=== PATIENT | female | born 1960 | race American Indian/Alaskan Native ===

== ENCOUNTER 2017-03-09 10:11 | Outpatient (CLI) | payer BC ==
--- NOTE | 2017-03-12 09:48 | Mammography Report ---
BILATERAL MAMMOGRAM: FINDINGS: The breasts are almost entirely fat (<25% glandular). No mass, distortion, suspicious calcification, or skin change is seen. No significant change when compared to prior exams dating back to 2015. CAD was utilized. IMPRESSION: Negative mammogram. There is no mammographic evidence of malignancy. RECOMMENDATION: Follow-up per ACS guidelines. BI-RADS CATEGORY: 1 = Negative ACR BI-RADS MAMMOGRAPHIC CODES: 0 = Needs additional imaging evaluation; 1 = Negative; 2 = Benign; 3 = Probably benign; 4 = Suspicious; 5 = Malignant; 6 = Known biopsy-proven malignancy COMMENT: 1. Dense breast tissue, i.e., adenosis, fibrocystic changes, etc., may obscure an underlying neoplasm. 2. Approximately 10% of cancers are not detected with mammography. 3. A negative mammography report should not delay biopsy if a clinically suspicious mass is present. COMMENT: Patient follow-up letters are generated in [employer].
== END 2017-03-09 10:12 | disposition home or self-care (01) ==
LOC: SPVWC 10:11
PROVIDERS: ATTEND Obstetrics & Gynecology
DX: Z12.31 Encounter for screening mammogram for malignant neoplasm of breast (principal)
CPT/HCPCS: 77067; G0202

== ENCOUNTER 2018-10-14 09:36 | Outpatient (CLI) | payer BC ==
--- NOTE | 2018-10-14 11:36 | Mammography Report ---
BILATERAL DIGITAL SCREENING MAMMOGRAM WITH CAD INDICATION: Routine screening mammography. TECHNIQUE: Digital bilateral 2D mammography was obtained in the craniocaudal and mediolateral obliq ue projections. This examination was interpreted with the benefit of Computer-Aided Detection analysi s. COMPARISON: 10/05/2015 and 03/09/2017 FINDINGS: Breast Density: The breasts are almost entirely fatty. No mass, architectural distortion or suspicious calcifications. Bilateral benign calcifications. IMPRESSION:No mammographic evidence of malignancy. BI-RADS Category 2: Benign. No mammographic evidence of malignancy. Recommend routine screening ma mmography in one year. A "normal" or negative report should not discourage follow up or biopsy of a clinically significant f inding. A written summary of these findings will be mailed to the patient. The patient will be entered into a mammography reporting system which will generate a reminder letter for the patient's next appointmen t at the appropriate interval. The [employer] recommends yearly mammograms starting at age 40 and continuing as l matthew as a woman is in good health. Breast MRI is recommended for women with an approximate 20-25% or greater lifetime risk of breast cancer, including women with a strong family history of breast or ova dahiana cancer or who have been treated for Hodgkin's disease. Signer Name: Jun Solano MD Signed: 10/14/2018 11:31 AM Workstation Name: [id number]
== END 2018-10-14 09:37 | disposition home or self-care (01) ==
LOC: SPVWC 09:36
PROVIDERS: ATTEND Obstetrics & Gynecology
DX: Z12.31 Encounter for screening mammogram for malignant neoplasm of breast (principal)
CPT/HCPCS: 77067

== ENCOUNTER 2019-06-17 05:45 | Day surgery (SDC) | payer BC ==
--- NOTE | 2019-06-09 17:38 | History and Physical Report ---
History of Present Illness Date of examination: 06/05/19 Chief complaint: Postmenopausal bleeding and endometrial mass History of present illness: ast History : 2 Term Births: 2 Living Children: 2 Prev : 2 # 1 Delivery date: 1985 Delivery type: Comments: c/sx2 # 2 Delivery type: RN EMERGENCY ROOM History Operations: Tubal Ligation Ventral hernoa repair colon polypectomy thru periumbilical incision Breast Reduction: C-sectionx2 hiatal hernia repair (03/2019) Abnormal PAP: negative Infection History HIV Risk Eval: no Hx of STD: HSV Active Medications (reviewed today): LINZESS 145 MCG ORAL CAPSULE (LINACLOTIDE) TRIBENZOR 40-10-12.5 MG ORAL TABLET (Umnuuxrmzk-Gloxxauaxz-YOWF) Current Allergies (reviewed today): No known allergies Past Medical History: Reviewed history from 04/12/2011 and no changes required: Hypertension [facility] Past Surgical History: Tubal Ligation Ventral hernoa repair colon polypectomy thru periumbilical incision Breast Reduction: C-sectionx2 hiatal hernia repair (03/2019) Family History Summary: Reviewed history Last on 03/17/2019 and no changes required:06/09/2019 Other Family Member - Has No Family History of Uterine Cancer - Entered On: 09/24/2015 Other Family Member - Has No Family History of Small Bowel Cancer - Entered On: 09/24/2015 Other Family Member - Has No Family History of Stomach Cancer - Entered On: 09/24/2015 Other Family Member - Has No Family History of Pancreatic Cancer - Entered On: 09/24/2015 Other Family Member - Has No Family History of Ovarvian Cancer - Entered On: 09/24/2015 Other Family Member - Has No Family History of Kidney/Urinary Tract Cancer - Entered On: 09/24/2015 Other Family Member - Has No Family History of DVT/PE on OCP - Entered On: 09/24/2015 Other Family Member - Has No Family History of Colon Cancer - Entered On: 09/24/2015 Other Family Member - Has No Family History of Brain Cancer - Entered On: 09/24/2015 Other Family Member - Has No Family History of Biliary Tract Cancer - Entered On: 09/24/2015 General Comments - FH: Family History Breast Cancer cousins (maternal great aunt's grandchildren) No Family History of Colon Cancer No Family History of Ovarvian Cancer Social History: Reviewed history from 09/27/2016 and no changes required: Patient is Smoking History: Patient has never smoked. Risk Factors: Alcohol use: yes Previous Tobacco Use: Signed On 04/07/2019 Smoked Tobacco Use: Never smoker Smokeless Tobacco Use: Never Passive smoke exposure: no Drug use: no HIV high-risk behavior: no Previous Alcohol Use: Signed On 04/07/2019 Alcohol use: yes Type: occ Drinks per day: social Exercise: no Seatbelt use: 100 % Colonoscopy History: Date of Last Colonoscopy: 09/30/2013 Mammogram History: Date of Last Mammogram: 10/14/2018 PAP Smear History: Date of Last PAP Smear: 03/17/2019 Physical Exam Appearance: well developed, well nourished, no acute distress Other Exams Lungs: no rales, rhonchi, or wheezes Heart: S1, S2, no murmur, rub, or gallop Genitourinary Exam Uterus: deferred for EUA Impression & Recommendations: Problem # 1: Postmenopausal Bleeding (ICD-627.1) ([id number]-Q14.0) Patient desires to proceed wtih hysteroscopy D&C and removal of endometrial ma ss. Consent reviewed and signed . Possible laparoscopy or laparotomy explained to patient. The risks and alternatives for this surgery were reviewed with the patient. She was informed of possible bleeding, infection, injury to bowel, bladder, ureters or other adjacent organs. The patient was instructed/informed the following: The normal length of hospital stay for this procedure. Nothing to eat or drink after midnight the evening prior to surgery. Clear liquids after dinner the night before surgery. Pre-op instruction sheets given. Patient to call for any signs or symptoms of infection. The usual discomforts associated with this procedure were detailed. Patient was given ample opportunity to have all her questions answered before signing informed consent. Problem # 2: Endometrial mass (ICD-236.0) (CVB72-Q91.0) Medications and Allergies Allergies Allergy/AdvReac Type Severity Reaction Status Date / Time No Known Allergies Allergy Unverified 06/05/19 12:05 Home Medications Medication Instructions Recorded Confirmed Last Taken Type Latanoprost 0.005% 1 drop OU HS 06/05/19 06/05/19 Unknown History Linaclotide [Linzess] 1 cap PO DAILY PRN 06/05/19 06/05/19 Unknown History Olmesartan/Amlodipin/Hcthiazid 1 each PO DAILY 06/05/19 06/05/19 Unknown History [Tribenzor 20-5-12.5 mg Tablet] Active Meds: Active Medications Cefazolin Sodium (Ancef/Sterile Water 2 Gm/20 Ml) 2 gm in 20 mls @ 80 mls/hr IV PREOP NR; Protocol Assessment and Plan - Patient Problems (1) Postmenopausal bleeding Status: Acute (2) Endometrial mass Status: Acute
[~2019-06-17 05:45] MED LIST: LACTATED RINGERS 1,000 ML IV SCH; ceFAZolin/Water 2 GM/20 ML 2 GM/20 ML SYRINGE IV NR
[2019-06-17] MEDS ORDERED: ceFAZolin/Water 2 GM/20 ML 2 GM/20 ML SYRINGE IV NR (06:00)
[2019-06-17] MEDS ORDERED: MIDAZOLAM 2 MG/2 ML INJ IV NR (06:00)
[2019-06-17 07:11] LABS: Hematocrit 34.8 % (30.3-42.9); Hemoglobin 12.1 gm/dl (10.1-14.3)
[2019-06-17] MEDS ORDERED: FAMOTIDINE 20 MG/2 ML INJ IV ONE (07:28)
[2019-06-17] MEDS ORDERED: KETOROLAC 30 MG/1 ML INJ IV PRN (07:30)
--- NOTE | 2019-06-17 07:30 | Anesthesia Day of Surgery ---
Anesthesia Day of Surgery - Day of Surgery Patient Examined: Yes Patient H&P Reviewed: Yes Patient is NPO: Yes
--- NOTE | 2019-06-17 07:30 | Anesthesia Consultation ---
Anesthesia Consult and Med Hx Date of service: 06/17/19 - Airway Anesthetic Teeth Evaluation: Good ROM Head & Neck: Adequate Mental/Hyoid Distance: Adequate Mallampati Class: Class III Intubation Access Assessment: Possibly Difficult - Pulmonary Exam CTA: Yes - Cardiac Exam Cardiac Exam: RRR - Pre-Operative Health Status ASA Pre-Surgery Classification: ASA2 Proposed Anesthetic Plan: General - Pulmonary Hx Smoking: No Hx Respiratory Symptoms: No - Cardiovascular System Hx Hypertension: Yes Hx Heart Attack/AMI: No - Central Nervous System CVA: No - Gastrointestinal Hx Gastroesophageal Reflux Disease: Yes (previous hx; resolved since hiatal hernia repair) - Endocrine Hx Renal Disease: No Hx Liver Disease: No Hx Insulin Dependent Diabetes: No Hx Non-Insulin Dependent Diabetes: No Hx Thyroid Disease: No - Other Systems Hx Obesity: Yes (BMI 36) - Additional Comments Anesthesia Medical History Comments: No hx anesthetic complications.
[2019-06-17] MEDS ORDERED: fentaNYL 100 MCG/2 ML INJ ONE (07:31)
[2019-06-17] MEDS ORDERED: propofoL 200 MG/20 ML VIAL IV ONE (07:31)
[2019-06-17] MEDS ORDERED: SODIUM CHLORIDE 0.9% IRRIG SOLN 3000 ML IR ONE (07:36)
[2019-06-17] MEDS ORDERED: LIDOCAINE MPF (2%) 20 MG/1 ML VIAL 5 ML ONE (07:54)
[2019-06-17] MEDS ORDERED: dexAMETHasone 20 MG/5 ML VIAL ONE (07:54)
[2019-06-17] MEDS ORDERED: ONDANSETRON 4 MG/2 ML INJ ONE (07:54)
[2019-06-17] MEDS ORDERED: fentaNYL 100 MCG/2 ML INJ IV PRN (08:00)
[2019-06-17] MEDS ORDERED: FAMOTIDINE 20 MG/2 ML INJ IV NR (08:00)
[2019-06-17] MEDS ORDERED: LACTATED RINGERS 1,000 ML ONE (08:32)
[2019-06-17] MEDS ORDERED: KETOROLAC 30 MG/1 ML INJ ONE (08:33)
--- NOTE | 2019-06-17 08:56 | Operative Report ---
Operative Report Operative Report: Date; 06/16/2019 PREOPERATIVE DIAGNOSES: 1. Postmenopausal bleeding with endometrial mass POSTOPERATIVE DIAGNOSES: 1. Postmenopausal bleeding with endometrial mass PROCEDURE PERFORMED: 1. Cervical dilation and uterine curettage (D&C). 2. Hysteroscopy. 3. Resection of endometrial mass ANESTHESIA: General ESTIMATED BLOOD LOSS: Less than minimal cc. INDICATIONS: This is a 58-year-old female that presents above. PROCEDURE: The patient was seen in the preoperative suite. Expected procedure and postoperative course discussed with her. She was taken to the operative suite where general anesthesia was induced with only the dressage instructor and anesthesiologist present. She was placed in a dorsal lithotomy position. She was prepped and draped in the normal sterile fashion. Timeout was performed. Her bladder was drained with the red rubber catheter which produced approximately 100 cc of clear yellow urine. . A bivalve operative speculum was placed in the vagina. The cervix and vagina were grossly normal with no obvious masses or deformities and the anterior lip of the cervix was grasped with the single-tooth tenaculum. The uterus was sounded to ~10 cm. The cervix was progressively dilated to allow the operative hysteroscope. On initial introduction a polyp was noted in the internal cervical office. The polyp was grasped with tissue extractor forceps and removed. Under direct visualization, the ostia were within normal limits. The endometrial lining appeared to have remnants of the polyp that were removed as well as a right anterior fundal polyp noted. However, there was no obvious evidence of malignancy. At this point the Myosure lite device was used to resect the remainder of the remnant of the polyp noted as well as the right anterior fundal polyp. The hysteroscope was removed and a small sharp curette was placed intrauterine very carefully using anterior wall for guidance. Endometrial curettings were obtained. The endometrial sampling was placed on Telfa pad and sent to Pathology for evaluation, permanent. The hysteroscope was introduced again, no evidence of perforation was noted. At this point procedure was ended. The single-tooth tenaculum and speculum were removed. The cervix was found to be hemostatic. Counts were correct. Patient was taken to the PACU stable. Distention fluid: Normal saline Deficit: 100 mL
--- NOTE | 2019-06-17 09:36 | Discharge Summary ---
Providers - Providers Date of discharge: 06/17/19 Attending physician: MATEUSZ FRANK Primary care physician: JOYCE GUZMAN Hospitalization Condition: Good Procedures: See op note Hospital course: Uncomplicated Disposition: DC-01 TO HOME OR SELFCARE - Discharge Diagnoses (1) Postmenopausal bleeding Status: Acute (2) Endometrial mass Status: Acute Core Measure Documentation - Palliative Care Palliative Care/ Comfort Measures: Not Applicable - Core Measures Any of the following diagnoses?: none Exam - Constitutional Vitals: Temp Pulse Resp BP Pulse Ox 97.1 F L 64 21 160/72 97 06/17/19 08:45 06/17/19 09:15 06/17/19 09:15 06/17/19 09:15 06/17/19 09:15 General appearance: Present: no acute distress - Respiratory Respiratory effort: normal - Cardiovascular Rhythm: regular - Psychiatric Psychiatric: appropriate mood/affect, intact judgment & insight, memory intact, cooperative Plan Activity: other (No sex, may drive tomorrow) Weight Bearing Status: Full Weight Bearing Diet: low fat, low cholesterol, low salt Special Instructions: no heavy lifting (Greater than 25lbs) Care Plan Goals: Normal post op care Plan of Treatment: see discharge instrn's Follow up with: JOYCE GUZMAN MD [Primary Care Provider] - 7 Days MATEUSZ FRANK MD [Staff Physician] - (As scheduled. If stable at the time of post op visit may change visit to telemedicine visit instead of presenting to the office)
[2019-06-17 10:02] VITALS: BP 136/77
--- NOTE | 2019-06-17 17:25 | Post Anesthesia Evaluation ---
- Post Anesthesia Evaluation Patient Participated: Yes Airway Patent: Yes Stable Respiratory Function: Yes Nausea/Vomiting: No Temp > 96.8F: Yes Pain Manageable: Yes Adequeate Hydration: Yes Anesthesia Complications: No
== END 2019-06-17 05:46 | disposition home or self-care (01) ==
LOC: OR 05:45
PROVIDERS: ATTEND Obstetrics & Gynecology
DX: N95.0 Postmenopausal bleeding (principal); N85.01 Benign endometrial hyperplasia; Z79.899 Other long term (current) drug therapy; N94.89 Other specified conditions associated with female genital organs and menstrual cycle; H40.9 Unspecified glaucoma; I10 Essential (primary) hypertension; K21.9 Gastro-esophageal reflux disease without esophagitis; E66.9 Obesity, unspecified; Z98.51 Tubal ligation status; Z72.89 Other problems related to lifestyle; Z98.890 Other specified postprocedural states; Z68.36 Body mass index [BMI] 36.0-36.9, adult
CPT/HCPCS: 36415; 58558; 81025; 84132; 85014; 85018; 86850; 86900; 86901; 88305; A4217; J0690; J1100; J1885; J2250; J2405; J2704; J3010; J7120

== ENCOUNTER 2019-10-30 08:59 | Outpatient (CLI) | payer BC ==
--- NOTE | 2019-10-31 13:56 | Mammography Report ---
DIGITAL SCREENING MAMMOGRAM WITH CAD, 10/30/2019 INDICATION: Routine screening mammography. TECHNIQUE: Digital bilateral 2D mammography was obtained in the craniocaudal and mediolateral obliq ue projections. This examination was interpreted with the benefit of Computer-Aided Detection analysi s. COMPARISON: 03/09/2017, 10/14/2018 FINDINGS: Breast Density: There are scattered areas of fibroglandular density. There is no evidence of dominant mass, suspicious calcifications or architectural distortion in eithe r breast. Bilateral changes consistent with history of reduction mammoplasty are noted. Overall, no i nterval change. IMPRESSION: Benign findings. No evidence of malignancy. Follow up recommendation: Routine yearly BI-RADS Category 2: Benign. A "normal" or negative report should not discourage follow up or biopsy of a clinically significant f inding. A written summary of these findings will be mailed to the patient. The patient will be entered into a mammography reporting system which will generate a reminder letter for the patient's next appointmen t at the appropriate interval. The [employer] recommends yearly mammograms starting at age 40 and continuing as l matthew as a woman is in good health. Breast MRI is recommended for women with an approximate 20-25% or greater lifetime risk of breast cancer, including women with a strong family history of breast or ova dahiana cancer or who have been treated for Hodgkin's disease. Signer Name: Rivka Reyes MD Signed: 10/31/2019 1:52 PM Workstation Name: [id number]
== END 2019-10-30 09:00 | disposition home or self-care (01) ==
LOC: SPVWC 08:59
PROVIDERS: ATTEND Obstetrics & Gynecology
DX: Z12.31 Encounter for screening mammogram for malignant neoplasm of breast (principal)
CPT/HCPCS: 77067

== ENCOUNTER 2021-02-09 10:07 | Outpatient (CLI) | payer BC | END 2021-02-09 10:08 | disposition home or self-care (01) | LOC: MAMMO 10:07 | PROVIDERS: ATTEND Obstetrics & Gynecology | DX: Z12.31 Encounter for screening mammogram for malignant neoplasm of breast (principal) | CPT/HCPCS: 77067 ==